=== PATIENT | male | born 1960 | race Caucasian/White ===

== ENCOUNTER 2019-07-10 13:34 | Emergency (ER) | payer OTHER ==
[~2019-07-10] VITALS: Ht 177.8 cm; Wt 82.1 kg
[2019-07-10 13:42] VITALS: BP 164/104
[2019-07-10] MEDS ORDERED: SYNTHROID150 MCG PO (13:48)
[2019-07-10] MEDS ORDERED: NORCO 5-325 TA1 EAC1 PO (13:57)
[2019-07-10] MEDS ORDERED: FLEXERIL PO (13:57)
== END 2019-07-10 14:59 | disposition home or self-care (01) ==
LOC: M.ERS 13:34
DX: S16.1XXA Strain of muscle, fascia and tendon at neck level, initial encounter (principal); I10 Essential (primary) hypertension; E03.9 Hypothyroidism, unspecified; E78.00 Pure hypercholesterolemia, unspecified; Z96.652 Presence of left artificial knee joint; V49.50XA Passenger injured in collision with unspecified motor vehicles in traffic accident, initial encounter; Y92.89 Other specified places as the place of occurrence of the external cause; Y93.89 Activity, other specified; Y99.8 Other external cause status

== ENCOUNTER 2019-10-24 10:02 | Observation (INO) | payer OTHER ==
[~2019-10-24] VITALS: Ht 188 cm; Wt 79.4 kg
--- NOTE | ~2019-10-24 | CON ---
[address] [address] CONSULTATION Name: MARY ELLEN ARCHER Room: [address] IN M.R.#: [id number] Admission: 10/24/19 Attend Phys: Wong Elena MD Discharge: Date of : 62 Report #: [id number] THIS REPORT FOR: //name// CC: Wong Elena [facility] physician/PCP DATE OF SERVICE: 10/24/2019 HISTORY OF PRESENT ILLNESS: This is a 59-year-old male patient who was seen by me for the numbness on the left side. He noticed that around 6:30. He came to Emergency Room and was seen by Emergency Room physician who ordered a CT on him and that CT was mostly unremarkable. He never had any stroke before. He is a smoker. He thinks he may be somewhat better. REVIEW OF SYSTEMS: Indicate that this patient a smoker for a long time. He used to drink alcohol significantly. He indicates he does not drink much alcohol when he is at home. He had knee surgery done that was several years ago. He had MRIs since then according to him. He does have a history of high cholesterol and hypertension. I do not think he gets proper medical followup for that. This was his relevant 14-point review of system. PAST MEDICAL HISTORY: Negative for any heart issues. FAMILY HISTORY: Unremarkable. SOCIAL HISTORY: He smokes. PHYSICAL EXAMINATION: Indicate he is alert, responsive, able to follow simple and complex commands. His cranial nerve examinations appear unremarkable. His neuromuscular examination allowing for his knee appear unremarkable. Cardiac and respiratory examination appear noncontributory. Blood pressure is 162/93, respirations 13, pulse is 62, temperature is 98.2. LABORATORY DATA: White count is 8.7. IMPRESSION: Pretty subtle symptoms at the moment. We will see what the workup shows outside the window for TPA and his symptoms are pretty minor. We discussed that all aspect with him. Main thing will be just to see what the workup shows and go from there. Thank you very much for this referral. By: 1426 0020Kristofer Moreno MD /nt
[~2019-10-24 10:02] MED LIST: FLEXERIL PO; NORCO 5-325 TA1 EAC1 PO; SYNTHROID150 MCG PO
[2019-10-24 10:08] VITALS: BP 164/100
[2019-10-24 10:37] LABS: ABSOLUTE EOSINOPHILS 0.3 thou/uL (0.0-0.7); ABSOLUTE LYMPHOCYTES 2.3 thou/uL (0.8-5.3); ABSOLUTE MONOCYTES 0.5 thou/uL (0.0-1.2); ABSOLUTE NEUTROPHILS 5.4 thou/uL (1.6-8.1); BASOPHILS 0.6 %; EOSINOPHILS 3.3 %; HEMATOCRIT 42.6 % (42.0-52.0); HEMOGLOBIN 14.7 gm/dL (14.0-18.0); LYMPHOCYTES 27.1 %; MCH 31.9 pg (26.0-34.0); MCHC 34.6 g/dL (28.0-37.0); MCV 92.3 fL (80.0-100.0); MONOCYTES 6.3 %; MPV 7.8 fl. (7.2-11.1); NUCLEATED RBCS 0 /100WBC; PLATELET COUNT* 270 thou/uL (150-400); POLYS 62.7 %; RBC 4.62 mil/uL (4.50-6.00); RDW-CV 13.3 % (10.5-14.5); WBC 8.7 thou/uL (4.0-11.0)
[2019-10-24] MEDS ORDERED: ZOCOR20 MG PO (10:39)
[2019-10-24 10:47] LABS: CREATININE 1.1 mg/dL (0.6-1.3); POTASSIUM 4.5 mmol/L (3.5-5.1)
[2019-10-24 10:51] LABS: ALBUMIN 3.7 g/dL (3.4-5.0); TOTAL BILIRUBIN 0.8 mg/dL (<0.1-1.0); TOTAL PROTEIN 7.1 g/dL (6.4-8.2)
--- NOTE | 2019-10-24 13:31 | NUR ---
PT BACK FROM MRI/MRA
--- NOTE | 2019-10-24 14:15 | EKG ---
[place] [address] ELECTROCARDIOGRAM REPORT Name: MARY ELLEN ARCHER Room: [place] [address] ADM IN .R.#: [id number] Admission: 10/24/19 Attend Phys: Wong Elena MD Discharge: Date of : 62 Report #: [id number] THIS REPORT FOR: //name// [facility] ED Test Date: 2019-10-24 Test Time: 10:08:52 Pat Name: MARY ELLEN ARCHER Department: Room: [facility] Gender: Consulting Sme: : 1960 Requested By: Bertin Alex Order Number: [id number] MD: Tong Rubalcava Measurements Intervals [place] Rate: 72 P: 67 OK: 140 QRS: 68 QRSD: 99 T: 66 QT: 391 QTc: 428 Interpretive Statements Sinus rhythm No previous ECG available for comparison Electronically Signed On 10-24-2019 14:15:11 ONCOLOGY PATIENT NAVIGATOR by Tong Rubalcava [email or web address] <ELECTRONICALLY SIGNED> By: Tong Rubalcava MD, [facility] 10/24/19 1415 1008 1008 Tong Rbualcava MD, FACC /EPI
[2019-10-24 14:50] VITALS: BP 150/77
[2019-10-24 15:26] VITALS: BP 151/91
--- NOTE | 2019-10-24 15:49 | NUR ---
RECEIEVIED REPORT FROM GER RN IN ER OF EXPECTED ADMISSION AT 1446- DX; LEFT SIDED NUMBNESS- PT ARRIVED TO ROOM 205 VIA CART, SBA TO BED- CARDIAC MONITO PLACED ORDERED, TRACING SR- PT A&O X4- CONTINENT FO BOWEL/BLADDER- UP AD SOLANGE IN ROOM, STEADY GAIT NOTED- VS 98.3 18 151/91 60 98% ON RA- ABD SOFT/FLAT/NON-TENDER, BS X4 QUADS- LAST BM REPORTED THIS AM- IV NOTED TO RIGHT AC INTACT, IVF STARTED ORDERED- ABRASIONS NOTED TO BLE- PT REPORTS TO BE DAILY SMOKER, NICOTEIN PATCH PLACED IN ER- NIH NOTED TO BE 1 FOR SENSORY DIFFERENCE SLIGHT NOTED IN LUE AT TIME OF ADMISSION- SWALLOW STUDY GOOD- ECHO ORDERED AND COMPLETED IN ER, RESULTS PENDING- CALL LIGHT AND PERSONAL BELONGINGS WITH IN REACH- PT MAKES NEEDS KNOWN- ALL NEEDS MET AT THIS TIME-WCTM
--- NOTE | 2019-10-24 17:14 | 2DMMODE ---
[place] [address] 2 D/M-MODE ECHOCARDIOGRAM Name: MARY ELLEN ARCHER Room: [address] IN [facility]#: [id number] Admission: 10/24/19 Attend Phys: Wong Elena, Discharge: Date of : 62 Date of Service: 10/24/19 1714 Report #: [id number] THIS REPORT FOR: //name// APPROVED REPORT Study performed: 10/24/2019 14:30:54 EXAM: Comprehensive 2D, Doppler, and color-flow Echocardiogram Patient Location: In-Patient Room #: [facility] Status: routine BSA: 2.05 HR: 56 bpm BP: 162/93 mmHg Rhythm: NSR Other Information Study Quality: Good Indications CVA/TIA Echo Enhancing Agent Indication: Rule out Shunt Agent(s) / Amount(s) Used: Agitated Saline 10 cc 2D Dimensions IVSd: 10.97 (7-11mm) LVOT Diam: 22.19 (18-24mm) LVDd: 48.21 mm PWd: 10.28 (7-11mm) Ascending Ao: 33.35 (22-36mm) LVDs: 33.10 (25-40mm) Aortic Root: 32.65 mm Volumes Left Atrial Volume (Systole) LA ESV Index: 26.30 mL/m2 Aortic Valve AoV Peak Paulino.: 1.42 m/s AO Peak Gr.: 8.12 mmHg LVOT Max P.71 mmHg AO Mean Gr.: 4.21 mmHg LVOT Mean P.78 mmHg LVOT Max V: 1.30 m/s AO V2 VTI: 31.02 cm LVOT Mean V: 0.75 m/s ADRYAN (VTI): 3.20 cm2 LVOT V1 VTI: 25.69 [place] [address] 2 D/M-MODE ECHOCARDIOGRAM Name: MARY ELLEN ARCHER Room: [address] IN .R.#: [id number] Admission: 10/24/19 Attend Phys: Wong Elena, Discharge: Date of : 62 Date of Service: 10/24/19 1714 Report #: [id number] Mitral Valve E/A Ratio: 1.59 MV Decel. Time: 192.69 ms MV E Max Paulino.: 0.71 m/s MV PHT: 55.88 ms MVA (PHT): 3.94 cm2 TDI E/Lateral E': 5.46 E/Medial E': 6.45 Medial E' Paulino.: 0.11 m/s Lateral E' Paulino.: 0.13 m/s Pulmonary Valve PV Peak Paulino.: 0.85 m/s PV Peak Gr.: 2.87 mmHg Tricuspid Valve RAP Estimate: 5.00 mmHg TR Peak Gr.: 16.28 mmHg RVSP: 21.00 mmHg PA Pressure: 21.00 mmHg Left Ventricle The left ventricle is normal size. There is normal LV segmental wall motion. There is normal left ventricular wall thickness. Left ventricular systolic function is normal. LVEF is 55-60%. The left ventricular diastolic function is normal. Right Ventricle The right ventricle is normal size. The right ventricular systolic function is normal. Atria The left atrium size is normal. Interatrial septum is intact without evidence of ASD or PFO. The right atrium size is normal. Aortic Valve The aortic valve is normal in structure. Trace aortic regurgitation. There is no aortic valvular stenosis. Mitral Valve The mitral valve is normal in structure. Trace mitral regurgitation. No evidence of mitral valve stenosis. Tricuspid Valve The tricuspid valve is normal in structure. No pulmonary hypertension. [place] [address] 2 D/M-MODE ECHOCARDIOGRAM Name: MARY ELLEN ARCHER Room: [address] IN [facility]#: [id number] Admission: 10/24/19 Attend Phys: Wong Elena, Discharge: Date of : 62 Date of Service: 10/24/19 1714 Report #: [id number] Pulmonic Valve The pulmonary valve is normal in structure. There is no pulmonic valvular regurgitation. Great Vessels The aortic root is normal in size. IVC is normal in size and collapses >50% with inspiration. Pericardium There is no pericardial effusion. <Conclusion> The left ventricle is normal size. There is normal left ventricular wall thickness. Left ventricular systolic function is normal. LVEF is 55-60%. The left ventricular diastolic function is normal. Trace aortic regurgitation. Trace mitral regurgitation. No pulmonary hypertension. Trace tricuspid regurgitation. IVC is normal in size and collapses >50% with inspiration. Interatrial septum is intact without evidence of ASD or PFO. <ELECTRONICALLY SIGNED> By: Champ Barcenas MD, FACC 10/24/191713 13 13 Champ Barcenas MD, FACC /INF
[2019-10-24 20:00] VITALS: BP 154/86
[2019-10-25] VITALS: BP 152/94
[2019-10-25 02:07] LABS: GLYCOHEMOGLOBIN (HGB A1C) 5.4 % (4.8-5.6)
[2019-10-25 04:00] VITALS: BP 136/76
[2019-10-25 04:46] LABS: ABSOLUTE BASOPHILS 0.1 thou/uL (0.0-0.2); ABSOLUTE EOSINOPHILS 0.4 thou/uL (0.0-0.7); ABSOLUTE LYMPHOCYTES 2.5 thou/uL (0.8-5.3); ABSOLUTE MONOCYTES 0.4 thou/uL (0.0-1.2); ABSOLUTE NEUTROPHILS 3.6 thou/uL (1.6-8.1); HEMATOCRIT 40.3 % (42.0-52.0); HEMOGLOBIN 13.7 gm/dL (14.0-18.0); LYMPHOCYTES 35.5 %; MCH 31.3 pg (26.0-34.0); MCHC 33.9 g/dL (28.0-37.0); MCV 92.2 fL (80.0-100.0); MONOCYTES 5.8 %; MPV 8.2 fl. (7.2-11.1); NUCLEATED RBCS 0 /100WBC; PLATELET COUNT* 238 thou/uL (150-400); POLYS 51.7 %; RBC 4.37 mil/uL (4.50-6.00); RDW-CV 13.2 % (10.5-14.5); WBC 6.9 thou/uL (4.0-11.0)
[2019-10-25 05:04] LABS: CALCIUM 8.9 mg/dL (8.5-10.1); CHOLESTEROL 130 mg/dL (<200); HDL CHOLESTEROL 36 mg/dL (>40); LDL CHOLESTEROL 77 mg/dL (<100); POTASSIUM 3.8 mmol/L (3.5-5.1); SERUM ASSESSMENT Clear; TC:HDL 3.6 Ratio (Not establshd); TRIGLYCERIDE 89 mg/dL (<150); VLDL 18 mg/dL (<40)
[2019-10-25 07:41] VITALS: BP 154/93
--- NOTE | 2019-10-25 08:32 | NUR ---
ASSUMED CARE OF PT THIS AM AROUND 0715- [employer] PIPING DESIGNER IN PLACE ORDERED, TRACING SR- UPON ASSESSMENT PT NOTED TO BE RESTING IN BED, WATCHING TV- PT A&O X4- CONTINENT OF B/B- UP AD-SOLANGE IN ROOM, STEADY GAIT NOTED- DIMINISHE LUNG SOUNDS NOTED, RESP EVEN AND UN-LABORED- VSS, O2 SAT 98% ON RA- ABD SOFT/FLAT/NON-TENDER, BS X4 QUADS- LAST BM REPORTED 10/24/19- IV NOTED TO RIGHT AC INTACT AND SL- GOOD PO INTAKE NOTED THIS AM WITH BREAKFAST- MRI SCHEDULED AND PLANNED FOR THIS AM- PT EXPRESSES WISHES TO GO HOME THIS AM- RATES HEADACHE 01/14 THIS AM, DENIES NEED FOR PAIN MEDICAITON AT THIS TIME- CALL LIGHT AND PERSONAL BELONGINGS WITH IN REACH- PT MAKES NEEDS KNOWN- ALL NEEDS MET AT THIS TIME-WCTM
[2019-10-25 09:03] VITALS: BP 154/93
[2019-10-25 10:43] VITALS: BP 165/95
[2019-10-25] MEDS ORDERED: ASA81BEC PO (13:36)
== END 2019-10-25 14:04 | disposition home or self-care (01) ==
LOC: M.ERS 10:02 → M.TBA-ER 12:01 → M.2W 12:01
PROVIDERS: Emergency Medicine; ADMIT Internal Medicine
DX: G45.9 Transient cerebral ischemic attack, unspecified (principal); E78.5 Hyperlipidemia, unspecified; I10 Essential (primary) hypertension; E03.9 Hypothyroidism, unspecified; E78.00 Pure hypercholesterolemia, unspecified; F17.210 Nicotine dependence, cigarettes, uncomplicated